=== PATIENT | female | born 1980 | race American Indian/Alaskan Native ===

== ENCOUNTER 2019-01-24 22:30 | Emergency (ER) | payer SELFPAY ==
[2019-01-25] MEDS ORDERED: cephALEXin 500 MG CAP PO ONE (00:12)
[2019-01-25] MEDS ORDERED: SULFAMETHOXAZOLE/TRIMETHOPRIM 800/160MG DS TAB PO ONE (00:12)
[2019-01-25] MEDS ORDERED: IBUPROFEN 800 MG TAB PO ONE (00:12)
--- NOTE | 2019-01-25 00:18 | Emergency Department Report ---
- General Chief complaint: Abdominal Pain Stated complaint: LUMP ON PELVIC AREA LT SIDE Time Seen by Provider: 01/25/19 00:12 Source: patient Mode of arrival: Ambulatory Limitations: No Limitations - History of Present Illness Initial comments: CC: "I have a lump in my pelvic area. Mrs. Durán is a 38 yo feamle without significant past medical history who presents with a lump in her left pelvic region. She does shave the pubic region. No fever. Moderate pain especially to palpation. No trauma. 2 days of symptoms. Warm bath this provided mild relief of pain. Has not had an abscess or boil on previous occasion. MD complaint: rash, abscess/boil -: Gradual, days(s) (2) Location: genitals Severity: moderate Quality: aching Consistency: constant Improves with: none Worsens with: palpation Context: other (shaving the pubic region) Associated symptoms: denies other symptoms Treatments Prior to Arrival: other (warm bath) - Related Data Previous Rx's Medication Instructions Recorded Last Taken Type DOXYCYCLINE Hyclate [Vibramycin 100 mg PO Q12HR #20 capsule 01/07/15 Unknown Rx CAP] metroNIDAZOLE [Flagyl] 500 mg PO Q12HR #20 tab 01/07/15 Unknown Rx Acetaminophen/Codeine [Tylenol #3] 1 tab PO Q6H PRN #20 tab 06/24/15 Unknown Rx Cyclobenzaprine [Flexeril] 10 mg PO TID PRN #30 tablet 06/24/15 Unknown Rx Ibuprofen [Motrin 600 MG tab] 600 mg PO Q8H PRN #40 tablet 06/24/15 Unknown Rx Ibuprofen [Motrin 800 MG tab] 800 mg PO TID PRN #15 tablet 01/25/19 Unknown Rx Sulfamethoxazole/Trimethoprim 1 each PO BID 7 Days #14 tablet 01/25/19 Unknown Rx [Bactrim DS TAB] cephALEXin [Keflex] 500 mg PO QID 7 Days #28 capsule 01/25/19 Unknown Rx Allergies Allergy/AdvReac Type Severity Reaction Status Date / Time No Known Allergies Allergy Unverified 01/07/15 08:48 Abscess Boil HPI - HPI Chief Complaint: Abdominal Pain Stated Complaint: LUMP ON PELVIC AREA LT SIDE Time Seen by Provider: 01/25/19 00:12 Home Medications: Previous Rx's Medication Instructions Recorded Last Taken Type DOXYCYCLINE Hyclate [Vibramycin 100 mg PO Q12HR #20 capsule 01/07/15 Unknown Rx CAP] metroNIDAZOLE [Flagyl] 500 mg PO Q12HR #20 tab 01/07/15 Unknown Rx Acetaminophen/Codeine [Tylenol #3] 1 tab PO Q6H PRN #20 tab 06/24/15 Unknown Rx Cyclobenzaprine [Flexeril] 10 mg PO TID PRN #30 tablet 06/24/15 Unknown Rx Ibuprofen [Motrin 600 MG tab] 600 mg PO Q8H PRN #40 tablet 06/24/15 Unknown Rx Ibuprofen [Motrin 800 MG tab] 800 mg PO TID PRN #15 tablet 01/25/19 Unknown Rx Sulfamethoxazole/Trimethoprim 1 each PO BID 7 Days #14 tablet 01/25/19 Unknown Rx [Bactrim DS TAB] cephALEXin [Keflex] 500 mg PO QID 7 Days #28 capsule 01/25/19 Unknown Rx Allergies/Adverse Reactions: Allergies Allergy/AdvReac Type Severity Reaction Status Date / Time No Known Allergies Allergy Unverified 01/07/15 08:48 ED Review of Systems ROS: Stated complaint: LUMP ON PELVIC AREA LT SIDE Other details as noted in HPI Constitutional: denies: fever, malaise Gastrointestinal: denies: abdominal pain, nausea, vomiting Genitourinary: denies: frequency, hematuria, discharge Skin: rash, lesions ED Past Medical Hx - Past Medical History Previous Medical History?: No - Surgical History Past Surgical History?: Yes Additional Surgical History: x 4 - Social History Smoking Status: Never Smoker Substance Use Type: None - Medications Home Medications: Home Medications Medication Instructions Recorded Confirmed Last Taken Type DOXYCYCLINE Hyclate [Vibramycin 100 mg PO Q12HR #20 capsule 01/07/15 Unknown Rx CAP] metroNIDAZOLE [Flagyl] 500 mg PO Q12HR #20 tab 01/07/15 Unknown Rx Acetaminophen/Codeine [Tylenol #3] 1 tab PO Q6H PRN #20 tab 06/24/15 Unknown Rx Cyclobenzaprine [Flexeril] 10 mg PO TID PRN #30 tablet 06/24/15 Unknown Rx Ibuprofen [Motrin 600 MG tab] 600 mg PO Q8H PRN #40 tablet 06/24/15 Unknown Rx Ibuprofen [Motrin 800 MG tab] 800 mg PO TID PRN #15 tablet 01/25/19 Unknown Rx Sulfamethoxazole/Trimethoprim 1 each PO BID 7 Days #14 tablet 01/25/19 Unknown Rx [Bactrim DS TAB] cephALEXin [Keflex] 500 mg PO QID 7 Days #28 capsule 01/25/19 Unknown Rx ED Physical Exam - General Limitations: No Limitations General appearance: alert, in no apparent distress - Head Head exam: Present: atraumatic, normocephalic - Eye Eye exam: Absent: scleral icterus, conjunctival injection - ENT ENT exam: Present: mucous membranes moist - Neck Neck exam: Present: normal inspection - Respiratory Respiratory exam: Absent: respiratory distress - GI/Abdominal GI/Abdominal exam: Present: soft. Absent: distended, tenderness, guarding, rebound - External exam: Present: erythema, swelling, other (in the mons pubis region 6 cm x 5 cm erythema with induration) - Neurological Exam Neurological exam: Present: alert, oriented X3 - Psychiatric Psychiatric exam: Present: normal affect, normal mood - Skin Skin exam: Present: warm, dry, intact, normal color ED Course Vital Signs 01/24/19 22:38 Temperature 99.3 F Pulse Rate 109 H Respiratory 18 Rate Blood Pressure 159/114 O2 Sat by Pulse 98 Oximetry ED Medical Decision Making - Medical Decision Making Cellulitis of the mons pubis region left side no obvious fluctuance to suggest abscess however early abscess is possible. Incision and drainage not indicated at this time. Prescribed ibuprofen Bactrim cephalexin. Mrs. Durán Understands return if symptoms progress. Critical care attestation.: If time is entered above; I have spent that time in minutes in the direct care of this critically ill patient, excluding procedure time. ED Disposition Clinical Impression: Cellulitis of pubic region Disposition: - TO HOME OR SELFCARE Is pt being admited?: No Does the pt Need Aspirin: No Condition: Stable Instructions: Cellulitis (ED) Prescriptions: Sulfamethoxazole/Trimethoprim [Bactrim DS TAB] 1 each PO BID 7 Days #14 tablet cephALEXin [Keflex] 500 mg PO QID 7 Days #28 capsule Ibuprofen [Motrin 800 MG tab] 800 mg PO TID PRN #15 tablet PRN Reason: Pain , Severe (7-10) Referrals: FREDRICK LO MD [Staff Physician] - 3-5 Days
[2019-01-25 02:36] VITALS: BP 146/93
== END 2019-01-25 02:37 | disposition home or self-care (01) ==
LOC: ED 22:30
DX: L03.319 Cellulitis of trunk, unspecified (principal); Z79.899 Other long term (current) drug therapy